=== PATIENT | male | born 2000 | race Two or more races ===

== ENCOUNTER 2020-03-08 13:58 | Inpatient (IN) | payer MEDICAID ==
[~2020-03-08] VITALS: Ht 177.8 cm; Wt 72.6 kg
[2020-03-08 14:15] VITALS: BP 123/85
--- NOTE | 2020-03-08 14:51 | NUR ---
PT WALKED OUT OF [facility]
--- NOTE | 2020-03-08 14:53 | NUR ---
PT WALKED BACK INTO ER LOBBY WITH A DRINK
--- NOTE | 2020-03-08 15:02 | NUR ---
[employer] [facility] [facility]
--- NOTE | 2020-03-08 15:18 | NUR ---
CALLED OUT NAME IN LOBBY, NO RESPONSE. CALLED OUT NAME OUTSIDE, NO RESPONSE
[2020-03-08 15:20] LABS: BASOPHILS % (AUTO) 0.6 % (0.0-2.0); EOSINOPHILS # (AUTO) 0.1 K/uL (0-0.4); EOSINOPHILS % (AUTO) 1.2 % (0.0-4.0); HEMATOCRIT 43.1 % (36-52); HEMOGLOBIN 14.7 g/dL (12.0-18.0); LYMPHOCYTES # (AUTO) 1.9 K/uL (2.0-11.5); LYMPHOCYTES % (AUTO) 20.9 % (20.5-51.1); MEAN CORPUSCULAR HEMOGLOBIN 32 pg (27-31); MEAN CORPUSCULAR HGB CONC 34 g/dL (33-37); MEAN CORPUSCULAR VOLUME 93.2 fL (80-94); MONOCYTES # (AUTO) 0.8 K/uL (0.8-1.0); MONOCYTES % (AUTO) 9.2 % (1.7-9.3); NEUTROPHILS # (AUTO) 6.1 K/uL (1.8-7.7); NEUTROPHILS % (AUTO) 68.1 % (42.2-75.2); PLATELET COUNT (AUTO) 141 K/uL (140-450); RED BLOOD CELL COUNT(AUTO) 4.62 MIL/uL (4.20-6.10); RED CELL DISTRIBUTION WIDTH 12.6 % (11.6-13.7); WHITE BLOOD COUNT (AUTO) 8.9 K/uL (4.5-11.0)
--- NOTE | 2020-03-08 15:28 | NUR ---
CALLED OUT NAME IN LOBBY, NO RESPONSE. CALLED OUT NAME OUTSIDE, NO RESPONSE
[2020-03-08 15:41] LABS: ALBUMIN 3.4 g/dL (3.4-5.0); ANION GAP 9.8 (8-16); ASPARTATE AMINOTRANSFERASE 44 U/L (15-37); CARBON DIOXIDE 30.9 mmol/L (21-32); CHLORIDE 108 mmol/L (98-107); CREATININE 0.9 mg/dL (0.6-1.3); GFR ARICAN-AMERICAN 138 mL/min (>90); GLUCOSE 94 mg/dL (74-106); POTASSIUM 3.7 mmol/L (3.5-5.1); SODIUM SERUM 145 mmol/L (136-145); TOTAL BILIRUBIN 0.3 mg/dL (0.0-1.0); UREA NITROGEN, BLOOD 5 mg/dL (7-18)
--- NOTE | 2020-03-08 15:43 | NUR ---
AMB TO [facility]
--- NOTE | 2020-03-08 15:46 | NUR ---
URINE SAMPLE CUP HANDED TO PHLEB
[2020-03-08] MEDS ORDERED: NACL 0.9% 2,200 ML IV ONE (15:50)
[2020-03-08] MEDS ORDERED: NACL 0.9% 1,000 ML IV SCH (16:02)
--- NOTE | 2020-03-08 16:03 | NUR ---
PT MOVED TO BED 8
[2020-03-08] MEDS ORDERED: HYDROcodone/APAP 5/325 MG 1 TAB TAB PO PRN (16:05)
[2020-03-08] MEDS ORDERED: DOCUSATE SODIUM 100 MG GELCAP PO PRN (16:05)
[2020-03-08] MEDS ORDERED: MORPHINE SULFATE 2 MG/ML SYR IVP PRN (16:05)
[2020-03-08] MEDS ORDERED: ONDANSETRON 4 MG/2 ML VIAL IVP PRN (16:05)
[2020-03-08] MEDS ORDERED: ZOLPIDEM 5 MG TAB PO PRN (16:05)
[2020-03-08] MEDS ORDERED: LORazepam 2 MG/ML VIAL IM/IVP PRN (16:05)
[2020-03-08] MEDS ORDERED: ACETAMINOPHEN 325 MG TAB PO PRN (16:05)
--- NOTE | 2020-03-08 16:10 | NUR ---
PT TO XRAY
[2020-03-08] MEDS ORDERED: cefTRIAXone 1,000 MG VIAL ONE (16:20)
--- NOTE | 2020-03-08 16:30 | NUR ---
PT C/O BODY ACHES 10/10 PAIN, CHILLS, AND WEAKNESS POST OVERDOSE 03/06/20. PT WAS ADMITTED TO ICU AND INTUBATED FOR OVERDOSE ON OXYCODONE PER PT. PT ELOPED YESTERDAY 03/07/20. PT ADMITS TO [facility] TODAY. PT DENIES FEVER, H/A, CP OR SOB. DENIES N/V/D. PT WAS INSTRUCTED TO RETURN TO ED BECAUSE HIS CULTURES SHOWS GFRAM NEGATIVE BACTEREMIA. PT DENIES ANY PMH OR HOME MEDS.
--- NOTE | 2020-03-08 16:33 | NUR ---
IV INSERTED, FLUIDS STARTED
--- NOTE | 2020-03-08 17:05 | NUR ---
PT SLEEPING, FLACC 0
--- NOTE | 2020-03-08 17:05 | NUR ---
MARY HEATH RUNNING
[2020-03-08 17:15] LABS: CHOL/HDL RATIO 3.1 (1-4.5); FREE T4 (FREE THYROXINE) 1.21 ng/dL (0.76-1.46); MAGNESIUM 1.9 mg/dL (1.8-2.4); THYROID STIMULATING HORMONE 0.38 uIU/mL (0.34-3.74)
[2020-03-08 17:18] LABS: PROTHROMBIN TIME 10.4 secs (10.8-13.4)
[2020-03-08 18:40] VITALS: BP 108/62
--- NOTE | 2020-03-08 18:40 | NUR ---
RECEIVED REPORT FROM ER NURSE JESSICA, PT ARRIVED IN THE UNIT VIA WHEELCHAIR, ASSISTED TO HIS BED AND ORIENTED TO HIS ROOM. PT ON ROOM AIR,AAOX4, AMBULATORY, SKIN INTACT, IV SITES INTACT AND PATENT,VITAL SIGN TAKEN BP 136/89, NY 57, RR 18 TEMP; 98.1 O2 SAT 100%. SAFETY MEASURES IN PLACE AND CALL LIGHT WITHIN REACH. WILL CONTINUE TO MONITOR.
--- NOTE | 2020-03-08 18:40 | NUR ---
Patient will be admitted to care of [facility]. Admited to TELE. Will go to room 104B. Belongings list completed. Report to EDUARDO CHEEK. INSTRUCTED HER THAT PT CAN HAVE A REGULAR DIET AND THAT PTS GF MAY BRING HIM FOOD LATER
--- NOTE | 2020-03-08 19:00 | NUR ---
PATIENT LEFT THE HOSPITAL AT THIS TIME, INCIDENT REPORT SUBMITTED,
== END 2020-03-08 19:05 | disposition left against medical advice (07) | DRG 351 ==
LOC: MED 13:58 → MTU 16:05
PROVIDERS: ADMIT Family Medicine; ATTEND Family Medicine
DX: M62.82 Rhabdomyolysis (principal); F17.210 Nicotine dependence, cigarettes, uncomplicated; F19.10 Other psychoactive substance abuse, uncomplicated
CPT/HCPCS: 36415; 71045; 80053; 82150; 82550; 82553; 83605; 83690; 83735; 83880; 84100; 84439; 84443; 85025; 85610; 85730; 87040; J0696; J7060; Q0092

== ENCOUNTER 2022-11-08 23:47 | Emergency (ER) | payer SELFPAY ==
[~2022-11-08] VITALS: Ht 177.8 cm; Wt 63.5 kg
[2022-11-08 23:52] VITALS: BP 102/67
--- NOTE | 2022-11-09 00:07 | NUR ---
pt ambulated to bed 2
--- NOTE | 2022-11-09 00:15 | NUR ---
ER MD at bedside examining patient.
[2022-11-09] MEDS ORDERED: SULF-59 PO (00:45)
[2022-11-09] MEDS ORDERED: SULFAMETH/TRIMETH DS 800/160MG 1 TAB PO ONE (00:45)
[2022-11-09 01:01] VITALS: BP 102/67
--- NOTE | 2022-11-09 01:01 | NUR ---
Patient discharged for Cellulitis. Written and verbal after care instructions given and explained. Patient alert, oriented and verbalized understanding of instructions. Ambulatory with steady gait. All questions addressed prior to discharge. ID band removed. Patient advised to follow up with PMD. Rx of Bactrim Ds tablet given. Patient educated on indication of medication including possible reaction and side effects. Opportunity to ask questions provided and answered.
== END 2022-11-09 01:01 | disposition home or self-care (01) ==
LOC: MED 23:47
DX: H00.035 Abscess of left lower eyelid (principal)
CPT/HCPCS: 99284